=== PATIENT | male | born 1940 | race Caucasian/White ===

== ENCOUNTER 2024-03-17 11:36 | Inpatient (IN) | payer MEDICARE, BC ==
[~2024-03-17] VITALS: Ht 177.8 cm; Wt 101.6 kg
[2024-03-17] MEDS ORDERED: NS 1,000 ML IV SCH ×3 (11:55→14:35)
[2024-03-17 12:07] LABS: BASOPHILS ABSOLUTE AUTO 0.03 K/mm3 (0.00-0.23); BASOPHILS PERCENT AUTO 0 % (0-2); EOSINOPHILS ABSOLUTE AUTO 0.05 K/mm3 (0.00-0.68); EOSINOPHILS PERCENT AUTO 0 % (0-6); Hematocrit 35.4 % (37.0-53.0); Hemoglobin 12.2 g/dL (13.5-17.5); IMMATURE GRAN ABSOLUTE AUTO 0.07 K/mm3 (0.00-0.10); IMMATURE GRAN PERCENT AUTO 1 % (0-1); LYMPHOCYTES ABSOLUTE AUTO 1.29 K/mm3 (0.84-5.20); LYMPHOCYTES PERCENT AUTO 11 % (21-46); MONOCYTES ABSOLUTE AUTO 0.91 K/mm3 (0.16-1.47); MONOCYTES PERCENT AUTO 8 % (4-13); Mean Corpuscular HGB 31.5 pg (26.0-34.0); Mean Corpuscular HGB Conc 34.5 g/dL (31.5-36.5); Mean Corpuscular Volume 92 fL (80-100); Mean Platelet Volume 10.5 fL (9.1-12.4); NEUTROPHILS ABSOLUTE AUTO 9.85 K/mm3 (1.96-9.15); NEUTROPHILS PERCENT AUTO 81 % (41-73); Platelet Count 229 K/mm3 (150-400); RDW Coefficient Variation 13.2 % (11.7-14.2); RDW Standard Deviation 44.5 fL (35.1-46.3); Red Blood Cell Count 3.87 M/mm3 (4.30-5.90)
[2024-03-17 12:25] LABS: Albumin, Blood 2.9 g/dL (3.4-5.0); Albumin/Globulin Ratio 0.8 (0.8-1.8); Bun/Creatinine Ratio 23.4 (12.0-20.0); Calcium, Blood 9.7 mg/dL (8.5-10.1); Creatinine, Blood 3.84 mg/dL (0.60-1.20); Globulin, Blood 3.7 g/dL (2.2-4.0); Potassium, Blood 2.9 mmol/L (3.5-5.5); Total Protein, Blood 6.6 g/dL (6.4-8.2)
[2024-03-17] MEDS ORDERED: Mag Sulfate 1 GM/D5% 100ML 100 ML IV ONE (12:50)
[2024-03-17] MEDS ORDERED: Potassium Chloride 40 MEQ in NS 250 ML IV ONE (12:50)
[2024-03-17] MEDS ORDERED: OMEP20ER PO (13:00)
[2024-03-17] MEDS ORDERED: HYDCHL25 PO (13:00)
[2024-03-17] MEDS ORDERED: Cyclobenzaprine5 MG PO (13:00)
[2024-03-17] MEDS ORDERED: LEVSOD150 PO (13:00)
[2024-03-17] MEDS ORDERED: METF500 PO (13:00)
[2024-03-17] MEDS ORDERED: Bumetanide2 MG PO (13:01)
[2024-03-17] MEDS ORDERED: INSULIN (13:01)
[2024-03-17] MEDS ORDERED: LISI20 PO (13:01)
[2024-03-17] MEDS ORDERED: GABA100 PO (13:01)
[2024-03-17] MEDS ORDERED: Crestor20 MG PO (13:01)
[2024-03-17] MEDS ORDERED: GLIP10 PO (13:01)
[2024-03-17] MEDS ORDERED: LATA.005SO BOTHEYES (13:02)
[2024-03-17] MEDS ORDERED: Acetaminophen 325 MG TABLET PO PRN (14:30)
[2024-03-17 15:51] LABS: Albumin, Blood 2.7 g/dL (3.4-5.0); Anion Gap 15 mmol/L (3-11); Blood Urea Nitrogen 89 mg/dL (8-24); Bun/Creatinine Ratio 23.2 (12.0-20.0); CO2, Blood 28 mmol/L (21-32); Calcium, Blood 9.3 mg/dL (8.5-10.1); Chloride, Blood 93 mmol/L (98-108); Creatinine, Blood 3.83 mg/dL (0.60-1.20); Glomerular Filtration Rate 15 (60-); Glucose, Blood 248 mg/dL (70-99); Phosphorus, Blood 2.2 mg/dL (2.5-4.9); Potassium, Blood 4.2 mmol/L (3.5-5.5); Sodium, Blood 132 mmol/L (136-145)
[2024-03-17] MEDS ORDERED: Insulin Regular 100 UNIT/ML 10ML Vial SC SCH (16:30)
--- NOTE | 2024-03-17 16:46 | NUR ---
pt arrived from er, slide over to bed with slide sheet. pt has abrasion on coccyx, picture taken. foam bordered dressing placed with barrier paste underneath. pt reports its sore from driving and sitting in care today. large scab to R outer ying. pt states it comes and goes, and is related to athletes foot. pictures placed in chart. pt denies shortness of breath. he reports only urinating once a day for the last 4 months, every since his appetite decreased. he also reports a 40lb weight loss over that time.
[2024-03-17 17:15] VITALS: BP 107/94
[2024-03-17 17:42] VITALS: BP 93/73
--- NOTE | 2024-03-17 18:34 | NUR ---
NO ACUTE CHANGES SINCE ARRIVAL TO UNIT. PT RESTING IN BED, TOLERATING DIET WELL. IV FLUIDS INFUSING PER EMAR. CALL LIGHT IN REACH. PT CALLING APPROPRIATLY. GRANDSON TO BRING IN MED LIST TOMORROW AND COPIES OF POWER OF ROOM SERVICE WAITER/WAITRESS AND ADVANCED DIRECTIVE.
[2024-03-17 19:44] VITALS: BP 83/58
[2024-03-17] MEDS ORDERED: Sodium Phosphate Mono/Dibasic 250 MG Tab PO SCH (21:00)
[2024-03-17] MEDS ORDERED: Gabapentin 100 MG Cap PO SCH (21:00)
[2024-03-17 23:49] VITALS: BP 95/52
[2024-03-18] VITALS (13 sets, daily range): BP systolic 81–117; BP diastolic 51–86
[2024-03-18] MEDS ORDERED: INSULANI SC (02:53)
[2024-03-18 04:44] LABS: BASOPHILS ABSOLUTE AUTO 0.03 K/mm3 (0.00-0.23); BASOPHILS PERCENT AUTO 0 % (0-2); EOSINOPHILS ABSOLUTE AUTO 0.23 K/mm3 (0.00-0.68); EOSINOPHILS PERCENT AUTO 2 % (0-6); Hematocrit 32.8 % (37.0-53.0); Hemoglobin 11.5 g/dL (13.5-17.5); IMMATURE GRAN ABSOLUTE AUTO 0.03 K/mm3 (0.00-0.10); IMMATURE GRAN PERCENT AUTO 0 % (0-1); LYMPHOCYTES ABSOLUTE AUTO 1.87 K/mm3 (0.84-5.20); LYMPHOCYTES PERCENT AUTO 19 % (21-46); MONOCYTES ABSOLUTE AUTO 0.75 K/mm3 (0.16-1.47); MONOCYTES PERCENT AUTO 8 % (4-13); Mean Corpuscular HGB 31.8 pg (26.0-34.0); Mean Corpuscular HGB Conc 35.1 g/dL (31.5-36.5); Mean Corpuscular Volume 91 fL (80-100); Mean Platelet Volume 10.6 fL (9.1-12.4); NEUTROPHILS ABSOLUTE AUTO 6.82 K/mm3 (1.96-9.15); NEUTROPHILS PERCENT AUTO 70 % (41-73); Platelet Count 176 K/mm3 (150-400); RDW Coefficient Variation 13.2 % (11.7-14.2); RDW Standard Deviation 43.7 fL (35.1-46.3); Red Blood Cell Count 3.62 M/mm3 (4.30-5.90); White Blood Cell Count 9.73 K/mm3 (4.00-11.30)
[2024-03-18 05:24] LABS: Albumin, Blood 2.6 g/dL (3.4-5.0); Anion Gap 12 mmol/L (3-11); Blood Urea Nitrogen 89 mg/dL (8-24); Bun/Creatinine Ratio 21.8 (12.0-20.0); CO2, Blood 29 mmol/L (21-32); Chloride, Blood 96 mmol/L (98-108); Creatinine, Blood 4.08 mg/dL (0.60-1.20); Glomerular Filtration Rate 14 (60-); Glucose, Blood 197 mg/dL (70-99); Magnesium, Blood 1.5 mg/dL (1.6-2.4); Phosphorus, Blood 2.9 mg/dL (2.5-4.9); Potassium, Blood 3.3 mmol/L (3.5-5.5); Sodium, Blood 134 mmol/L (136-145); Uric Acid, Blood 12.5 mg/dL (3.5-7.2)
[2024-03-18] MEDS ORDERED: NS 1,000 ML IV SCH (05:55)
[2024-03-18] MEDS ORDERED: Levothyroxine Sodium 0.15 MG Tab PO SCH (06:00)
[2024-03-18] MEDS ORDERED: Omeprazole 20 MG CapCR PO SCH (06:00)
[2024-03-18] MEDS ORDERED: Potassium Chl 20MEQ/Water100ML 100 ML IV ONE (06:30)
[2024-03-18] MEDS ORDERED: Mag Sulfate 1 GM/D5% 100ML 100 ML IV ONE (06:30)
--- NOTE | 2024-03-18 06:45 | NUR ---
SHIFT SUMMARY PATIENT ALERT AND ORIENTED X4. MEDICATED PER EMAR FOR A HEADACHE. PATIENT SLEPT OVERNIGHT. HAD NO COMPLAINTS OF CHEST PAIN OR SHORTNESS OF BREATH. ON ROOM AIR WITH SPO2 >90%. BLOOD PRESSURE CONTINUES TO BE HYPOTENSIVE WITH MAP >65. SINUS TACH, BUT NO EVENTS ON TELE. WILL CONTINUE TO MONITOR. CALL LIGHT WITHIN REACH.
[2024-03-18 08:54] LABS: Free Thyroxine 1.68 ng/dL (0.70-1.60); Triiodothyronine, Free 1.48 pg/mL (2.18-3.98)
[2024-03-18] MEDS ORDERED: Rosuvastatin Calcium 10 MG Tab PO SCH (09:00)
[2024-03-18] MEDS ORDERED: Latanoprost 0.005% Opth Soln 2.5 ML BOTHEYES SCH (09:00)
[2024-03-18] MEDS ORDERED: Heparin Sodium,Porcine 5,000 UNIT/0.5 ML SDV SC SCH (09:00)
--- NOTE | 2024-03-18 09:20 | NUR ---
BLADDER SCAN PERFORMED THERE WAS A READING OF 0ml IN BLADDER, THERE WAS NO DOCUMENTED URINE OUT PUT FROM LAST NOC. PT REPORTS THAT HE FEELS HE CAN URINATE, HE IS ATTEMPTING NOW
--- NOTE | 2024-03-18 09:25 | NUR ---
PT GOT UP TO BEDSIDE AND SPONTANEOUSLY VOIDED ON FLOOR, THERE WAS APPROXIMATELY 300ml OF URINE ON THE FLOOR, THIS WILL BE DOCUMENTED UNMEASURED VOID
--- NOTE | 2024-03-18 10:38 | NUR ---
PT UP TO BSC, SEE NOTE, SBA TO COMMODE. HE IS A/Ox4, HE ANSWERS QUESTIONS APPROPRIATELY IN FULL SENTENCES. HE DENIES CP, DENIES SOB. SR NOTED ON MONITOR. EVEN NON-LABORED CHEST RISE AND FALL NOTED. BLADDER SCAN PERFORMED, SEE NOTE. HE IS RECIEVING HEPARIN FOR DVT PREVENTION AND ASKS THAT SCD BE REMOVED WHICH THEY WERE AND ROM PERFORMED. HE REPORTS ACUTE LUMBAR BACK PAIN THAT BEGAN AFTER HIS FALL YESTERDAY, THERE ARE NO CONTUSIONS TO THE AREA, NO LEG WEAKNESS, INCONTENENCE IS NOT NEW FOR HIM, PAIN REMAINS IN LOW BACK DOES NOT RADIATE. VSS.
[2024-03-18] MEDS ORDERED: Midodrine 5 MG Tab PO SCH (13:00)
[2024-03-18] MEDS ORDERED: Midodrine 5 MG Tab PO ONE (13:00)
--- NOTE | 2024-03-18 13:09 | NUR ---
DR BULLOCK CALLED ABOUT BLOOD PRESSURE, NEW ORDER FOR EXTRA DOSE OF MIDODRINE AT THIS TIME
[2024-03-18] MEDS ORDERED: Cyclobenzaprine HCl 10 MG Tab PO PRN (17:50)
--- NOTE | 2024-03-18 18:51 | NUR ---
End of shift note. BP have remained soft this afternoon, SBP 80-90 but MAPs are >65. Midodrine given TID. Pt asymptomatic. GI consult was phoned in this shift. Pt went to imaging for upper GI this afternoon. Pt continues to report that he feels like it is difficult to swallow. Pt states that at times he will either vomit up solid food or be so unable to swallow it will just sit in his mouth until he spits it out. He also reports that at times the smell of food can also make him sick. Pt is tolerating clear liquids with staff and is able to swallow pills whole with water, without issue. Dr Cruz with GI saw Pt, no additional testing is indicated and recommended to have ST eval. Low urine output. IVF continue at 75mL/hr. PO fluids have been encouraged. Pt would like to have diet increased to full diet or more tomorrow. Multiple family members here to visit today. Med list and advance directive copies are now in the chart. Med rec was updated. Some complaints of back pain, PRN meds given. Pt reports some of his pain is chronic back pain but seems to be worse after the fall at admission. Pt is able to make needs known, call light is within reach.
[2024-03-19] VITALS (9 sets, daily range): BP systolic 90–120; BP diastolic 56–97
[2024-03-19] MEDS ORDERED: PIOG15 PO (04:54)
[2024-03-19 05:58] LABS: BASOPHILS ABSOLUTE AUTO 0.02 K/mm3 (0.00-0.23); BASOPHILS PERCENT AUTO 0 % (0-2); EOSINOPHILS ABSOLUTE AUTO 0.21 K/mm3 (0.00-0.68); EOSINOPHILS PERCENT AUTO 3 % (0-6); Hematocrit 32.8 % (37.0-53.0); Hemoglobin 11.3 g/dL (13.5-17.5); IMMATURE GRAN ABSOLUTE AUTO 0.04 K/mm3 (0.00-0.10); IMMATURE GRAN PERCENT AUTO 1 % (0-1); LYMPHOCYTES ABSOLUTE AUTO 1.44 K/mm3 (0.84-5.20); LYMPHOCYTES PERCENT AUTO 19 % (21-46); MONOCYTES ABSOLUTE AUTO 0.51 K/mm3 (0.16-1.47); MONOCYTES PERCENT AUTO 7 % (4-13); Mean Corpuscular HGB 31.4 pg (26.0-34.0); Mean Corpuscular HGB Conc 34.5 g/dL (31.5-36.5); Mean Corpuscular Volume 91 fL (80-100); Mean Platelet Volume 10.6 fL (9.1-12.4); NEUTROPHILS ABSOLUTE AUTO 5.36 K/mm3 (1.96-9.15); NEUTROPHILS PERCENT AUTO 71 % (41-73); Platelet Count 151 K/mm3 (150-400); RDW Coefficient Variation 13.2 % (11.7-14.2); White Blood Cell Count 7.58 K/mm3 (4.00-11.30)
--- NOTE | 2024-03-19 06:36 | NUR ---
1915 Assumed care of patient, bedside report completed. Shift plan of care reviewed with pt, grandson and . All questions answered. Pt with uneventful shift. Reports pain with movement but is comfortable oherwise. Chronic back pain may have been exacerbated by recent fall per pt. Appears to have slept well,awakens to use uinal with 1 person assist at edge of bed. Able to reposition self in bed, though prefers to lie supine despite education to shift weight from coccyx. VSS. Please see full assessment for addtional details. No further complaints or concerns at this time, will continue to monitor.
[2024-03-19 06:53] LABS: Albumin, Blood 2.4 g/dL (3.4-5.0); Anion Gap 13 mmol/L (3-11); Blood Urea Nitrogen 72 mg/dL (8-24); Bun/Creatinine Ratio 23.2 (12.0-20.0); CO2, Blood 25 mmol/L (21-32); Calcium, Blood 8.7 mg/dL (8.5-10.1); Chloride, Blood 100 mmol/L (98-108); Creatinine, Blood 3.11 mg/dL (0.60-1.20); Glomerular Filtration Rate 19 (60-); Glucose, Blood 212 mg/dL (70-99); Magnesium, Blood 1.4 mg/dL (1.6-2.4); Sodium, Blood 135 mmol/L (136-145)
[2024-03-19] MEDS ORDERED: Potassium Chl 20MEQ/Water100ML 100 ML IV STA (07:06)
[2024-03-19] MEDS ORDERED: Potassium Chloride 10 Meq Tablet SA PO SCH (08:00)
[2024-03-19] MEDS ORDERED: Oxymetazoline 0.05% Nasal Relief Spray 15mL BTL PRN (10:40)
[2024-03-19] MEDS ORDERED: Insulin NPH 10 Unit/0.1ML (Single Dose) SC STA (12:21)
--- NOTE | 2024-03-19 12:25 | NUR ---
I CALLED DR. PERRY ABOUT HIS 10UNIT ORDER OF INSULIN-NPH BECAUSE I GAVE 8UNITS INSULIN REGULAR WITH LUNCH FOR CBG 344. HE STATED HE STILL WANTS ME TO GIVE THE 10UNITS OF NPH. SEE NOTES FOR UPDATES.
[2024-03-19] MEDS ORDERED: Insulin NPH 100 Unit / ML 10ML Vial SC STA (12:44)
--- NOTE | 2024-03-19 15:53 | NUR ---
Met with family and patient at bedside. The patient reports feeling weak and unable to eat any solid foods since December of this year, and had a 30-50lb weight loss as well. They report traveling from [place] home to [facility], when the patient almost fell due to increased weakness, and agreed to come to the hospital. He was initially DNR per his Advanced Directive, but upon speaking the pt changed his code status. His agrees, they both insist her remain a Full Code for now, and may consider returning to DNR "later".
--- NOTE | 2024-03-19 16:58 | NUR ---
SHIFT SUMMARY PT IS A&OX4, 1-2P ASSIST W/ FWW, CALLS APPROPRAITELY, AND CAN MAKE HIS NEEDS KNOWN. THE PT HAS BEEN UP INI THE CHAIR FOR HALF OF THE DAY, BUT HIS BACK WAS HURTING SO HE GOT IN BED THIS AFTERNOON; Q2 TURN. HIS VITAL SIGNS REMAIN STABLE. PT IS STILL RECIEVING MIDODRINE TID. SPEECH THERAPY CAME AND EVALUATED THE PT AND CHANGED HIS DIET TO A MINCED AND MOIST LEVEL 5 (CONS CARB). SHE STATED THAT SHE WILL DO A BARIUM SWALLOW ON HIM TOMORROW. PYSICAL THERAPY EVALUATED THE PT AND IS RECCOMMENDING REHAB D/T DECONDITIONING/WEAKNESS. PT IS NOW MEDICAL STATUS WITH TELE. SEE NOTES FOR ANY UPDATES.
--- NOTE | 2024-03-19 19:34 | NUR ---
LATE ENTRY PT ARRIVED APPROX 1830. ALERT AND ORIENTED X4 FAMILY AT BEDSIDE. THIS RN RECEIVED NOTICE FROM [facility], PT HAD 5 RUN VTACH, THIS IS NEW, PT NON SYMPTOMATIC, DENIED CHEST PAIN AND PRESSURE.
[2024-03-19] MEDS ORDERED: Insulin Glargine-Yfgn 100 Unit/mL 3 ML SYR SC SCH (21:00)
[2024-03-20] VITALS (11 sets, daily range): BP systolic 96–135; BP diastolic 73–88
[2024-03-20 05:10] LABS: Hemoglobin 10.9 g/dL (13.5-17.5)
[2024-03-20 05:56] LABS: Albumin, Blood 2.3 g/dL (3.4-5.0); Anion Gap 10 mmol/L (3-11); Blood Urea Nitrogen 50 mg/dL (8-24); Bun/Creatinine Ratio 24.6 (12.0-20.0); CO2, Blood 25 mmol/L (21-32); Calcium, Blood 9.1 mg/dL (8.5-10.1); Chloride, Blood 105 mmol/L (98-108); Creatinine, Blood 2.03 mg/dL (0.60-1.20); Glomerular Filtration Rate 32 (60-); Glucose, Blood 179 mg/dL (70-99); Magnesium, Blood 1.3 mg/dL (1.6-2.4); Phosphorus, Blood 2.7 mg/dL (2.5-4.9); Potassium, Blood 3.3 mmol/L (3.5-5.5); Sodium, Blood 137 mmol/L (136-145)
--- NOTE | 2024-03-20 06:00 | NUR ---
SHIFT SUMMARY: Pt admitted for acute kidney failure and is a full code. Is alert and able to make needs known. ADLs have been mainly 1p during shift. Stated he has some low back pain but when offered anything for it he declined. Tobias reports tach at 102.
[2024-03-20] MEDS ORDERED: Potassium Chloride 20 MEQ TabCR PO ONE (07:15)
[2024-03-20] MEDS ORDERED: Magnesium Sulf 2 GM/Water 50ML 50 ML IV ONE (07:20)
[2024-03-20] MEDS ORDERED: NS 1,000 ML IV SCH (10:00)
--- NOTE | 2024-03-20 11:41 | NUR ---
Pt and family members discussed care plan with this RN. The patient decided on hospice care. He declined [facility] due to being [place] based, prefers either [facility] or [facility], whichever has the soonest opening. Answered their questions, and explained the CM will follow up with them to finalize details and discharge plans.
--- NOTE | 2024-03-20 14:34 | NUR ---
RECIEVED A CALL FROM TELE- PER REPORT FROM TELE THIS PT HR HAS BEEN TACHY OFF AND ON HOWEVER HE IS CURRENTLY SINUS TACH AT UPPER 130'S NEARING 140'S. BP STABLE AT THIS TIME. PT ASYMPTOMATIC.
--- NOTE | 2024-03-20 14:35 | NUR ---
CALLED DR PERRY- PT TACHY ON TELE AND VITALS. SINUS TACH NOT AFIB, PER BEHAVIORAL SCIENCES INSTRUCTOR. CALLED DR PERRY. PT REMAINS ASYMPTOMATIC AT THIS TIME. WILL UPDATE BEDSIDE RN WHEN SHE RESUMES CARE.
[2024-03-20] MEDS ORDERED: Metoprolol Tartrate 25 MG Tab PO SCH ×3 (15:00→21:00)
[2024-03-20] MEDS ORDERED: Midodrine 5 MG Tab PO PRN (15:00)
--- NOTE | 2024-03-20 19:02 | NUR ---
PATIENT IS ALERT AND ORIENTED AND COOPERATIVE WITH CARE. ON RA. USES THE URINAL AND BSC WITH 1PA. UP TO THE CHAIR. FAMILY WAS AT THE BEDSIDE TODAY. THE PATIENT'S GRANDSON WILL BE HIS CAREGIVER WHEN DISCHARGED. TELEMETRY REPORTS ST AT 140 BPM, DR. PERRY NOTIFIED. PATIENT WAS ASYMPTOMATIC. NEW MEDICATION ORDERED AND HIS LATEST HR WAS 124 BPM. STABLE BP. STAGE 2 ULCER ON COCCYX, PILLOWS USED TO REPOSITION IN THE CHAIR, EGG CRATE ON THE BED. FOAM BANDAGE IN PLACE ON COCCYX. WILL CONTINUE TO MONITOR
[2024-03-21 05:53] LABS: Hematocrit 31.8 % (37.0-53.0); Hemoglobin 10.9 g/dL (13.5-17.5)
[2024-03-21] MEDS ORDERED: Levothyroxine Sodium 0.125 MG Tab PO SCH (06:00)
[2024-03-21 06:23] LABS: Albumin, Blood 2.3 g/dL (3.4-5.0); Anion Gap 11 mmol/L (3-11); Blood Urea Nitrogen 40 mg/dL (8-24); Bun/Creatinine Ratio 23.7 (12.0-20.0); CO2, Blood 24 mmol/L (21-32); Calcium, Blood 9.5 mg/dL (8.5-10.1); Chloride, Blood 106 mmol/L (98-108); Creatinine, Blood 1.69 mg/dL (0.60-1.20); Glomerular Filtration Rate 40 (60-); Glucose, Blood 224 mg/dL (70-99); Magnesium, Blood 1.4 mg/dL (1.6-2.4); Phosphorus, Blood 2.4 mg/dL (2.5-4.9); Potassium, Blood 3.5 mmol/L (3.5-5.5); Sodium, Blood 137 mmol/L (136-145)
[2024-03-21] MEDS ORDERED: Sodium Phosphate 10 MM in Dextrose 5% 250 ML IV STA (07:25)
--- NOTE | 2024-03-21 07:28 | NUR ---
SHIFT SUMMARY PT REPORTED BACK PAIN T/O NIGHT RELATED TO LUMBAR COMPRESSION FX. TYLNEOL AND FLEXERIL GIVEN. FREQUENT REPOSITIONING IN BED AND PT EVEN SAT UP IN CHAIR FOR ABOUT 2 HOURS BEFORE GETTING BACK IN BED. IV REPLACED THIS AM, RAC WAS LEAKING, REMOVED. CALL LIGHT IN REACH.
[2024-03-21 07:33] VITALS: BP 112/82
[2024-03-21] MEDS ORDERED: Ergocalciferol 50000 Intn'l Units PO SCH (09:00)
[2024-03-21] MEDS ORDERED: HUMULIN R100 UNIT/2 SC (11:26)
[2024-03-21] MEDS ORDERED: METO25 PO (11:28)
[2024-03-21] MEDS ORDERED: AFRIN15 M6 (11:30)
[2024-03-21] MEDS ORDERED: ERGO50000 PO (11:31)
[2024-03-21] MEDS ORDERED: Bumetanide2 MG PO (11:32)
[2024-03-21] MEDS ORDERED: EUTHYROX125 MCG PO (11:35)
[2024-03-21] MEDS ORDERED: POTA10T PO (11:36)
--- NOTE | 2024-03-21 12:32 | NUR ---
DISCHARGE PT DISCHARGED, REFUSED LUNCH, DID NOT ADMINISTER LUNCH INSULIN. DISCHARGE TEACHING DONE BY SHREE CUEVAS. IV DISCONTINUED BY MAURO CUEVAS. MAURO TOOK PATIENT DOWN TO ENTRANCE IN WHEELCHAIR WITH FAMILY FOLLOWING BEHIND. REPORTED PT GOT IN CAR WITHOUT PROBLEMS.
== END 2024-03-21 12:29 | disposition home health service (06) | DRG 682 ==
LOC: ER 11:36 → MEDS 14:26 → PCU 14:26 → MEDS 03-19 18:20 → ENPENDDIS 03-21 10:07 → MEDS 03-21 12:29
PROVIDERS: Emergency Medicine; Internal Medicine Nephrology; ADMIT Family Medicine
DX: N17.9 Acute kidney failure, unspecified (principal); E43 Unspecified severe protein-calorie malnutrition; E87.1 Hypo-osmolality and hyponatremia; M62.82 Rhabdomyolysis; K21.9 Gastro-esophageal reflux disease without esophagitis; E11.22 Type 2 diabetes mellitus with diabetic chronic kidney disease; R13.10 Dysphagia, unspecified; E78.5 Hyperlipidemia, unspecified; I12.9 Hypertensive chronic kidney disease with stage 1 through stage 4 chronic kidney disease, or unspecified chronic kidney disease; E87.6 Hypokalemia; E83.42 Hypomagnesemia; E11.40 Type 2 diabetes mellitus with diabetic neuropathy, unspecified; I95.9 Hypotension, unspecified; E66.9 Obesity, unspecified; I48.0 Paroxysmal atrial fibrillation; D72.829 Elevated white blood cell count, unspecified; E86.0 Dehydration; E03.9 Hypothyroidism, unspecified; N18.9 Chronic kidney disease, unspecified; E83.39 Other disorders of phosphorus metabolism; D63.1 Anemia in chronic kidney disease; E88.09 Other disorders of plasma-protein metabolism, not elsewhere classified; E79.0 Hyperuricemia without signs of inflammatory arthritis and tophaceous disease; Z79.84 Long term (current) use of oral hypoglycemic drugs; Z79.890 Hormone replacement therapy; Z79.4 Long term (current) use of insulin; Z68.30 Body mass index [BMI] 30.0-30.9, adult; Z85.46 Personal history of malignant neoplasm of prostate; Z91.81 History of falling
CPT/HCPCS: 36415; 71045; 72100; 74230; 74240; 76770; 80053; 80069; 82306; 82533; 82550; 82947; 83735; 84439; 84443; 84481; 84484; 84550; 85014; 85018; 85025; 92610; 92611; 93005; 93010; 96361; 96365; 96366; 96368; 97110; 97162; 97530; 99285-25; A9270; J1644; J1815; J3475; J3480; J7030; J7050; J7060